=== PATIENT | male | born 1945 | race Caucasian/White ===

== ENCOUNTER 2020-06-24 06:22 | Inpatient (IN) | payer OTHER, SELFPAY ==
[~2020-06-24] VITALS: Ht 167.6 cm; Wt 86.2 kg
[2020-06-24] MEDS ORDERED: NACL 0.9% 1,000 ML IV ONE (06:30)
--- NOTE | 2020-06-24 06:30 | NUR ---
PT OFELIA ALS. TAKEN TO BED 8
[2020-06-24 06:35] VITALS: BP 146/95
--- NOTE | 2020-06-24 06:40 | NUR ---
75 YO M BIBA FROM HOME WITH C/C OF SOB X1 HR. EMT STATED PT WAS SATING AT 70 RA, PLACED ON CIPAP ON ROUTE SATING IN MID 80S. PT IS AWAKE AND ALERT. LUNG SOUNDS CLEAR BILAT. DENIED PAIN. PT AFEBRILE. BS 126. INCREASED WORK OF BREATHING OBSERVED. RT AT BEDSIDE SETTING UP BIPAP. NKA HX: LUNG CANCER, HTN RX: DENIES
[2020-06-24 06:44] VITALS: BP 146/95
--- NOTE | 2020-06-24 06:50 | NUR ---
SWABS COLLECTED AND WALKED TO LAB.
--- NOTE | 2020-06-24 07:36 | NUR ---
REPORT GIVEN TO ROSALVA JONES. TRANSFER OF CARE AT THIS TIME.
[2020-06-24 08:19] LABS: BASOPHILS % (AUTO) 0.4 % (0.0-2.0); EOSINOPHILS % (AUTO) 0.4 % (0.0-4.0); LYMPHOCYTES # (AUTO) 2.1 K/uL (2.0-11.5); LYMPHOCYTES % (AUTO) 30.3 % (20.5-51.1); MEAN CORPUSCULAR HEMOGLOBIN 22 pg (27-31); MEAN CORPUSCULAR HGB CONC 31 g/dL (33-37); MEAN CORPUSCULAR VOLUME 69.3 fL (80-94); MONOCYTES # (AUTO) 0.4 K/uL (0.8-1.0); MONOCYTES % (AUTO) 5.8 % (1.7-9.3); NEUTROPHILS # (AUTO) 4.3 K/uL (1.8-7.7); NEUTROPHILS % (AUTO) 63.1 % (42.2-75.2); PLATELET COUNT (AUTO) 135 K/uL (140-450); RED BLOOD CELL COUNT(AUTO) 5.05 MIL/uL (4.20-6.10); RED CELL DISTRIBUTION WIDTH 19.8 % (11.6-13.7); WHITE BLOOD COUNT (AUTO) 6.8 K/uL (4.8-10.8)
[2020-06-24 08:34] LABS: FIBRINOGEN 359 mg/dL (200-400)
[2020-06-24 08:50] LABS: PROTHROMBIN TIME 10.4 secs (10.8-13.4)
--- NOTE | 2020-06-24 08:56 | NUR ---
*LAB CRITICAL RESULT*- called COVID-19 antigen POSITIVE results
[2020-06-24 09:16] LABS: ALBUMIN 3.4 g/dL (3.4-5.0); ANION GAP 22.3 (8-16); ASPARTATE AMINOTRANSFERASE 42 U/L (15-37); CARBON DIOXIDE 20.9 mmol/L (21-32); CHLORIDE 101 mmol/L (98-107); CREATININE 1.5 mg/dL (0.6-1.3); GLUCOSE 192 mg/dL (74-106); POTASSIUM 3.2 mmol/L (3.5-5.1); SODIUM SERUM 141 mmol/L (136-145); TOTAL BILIRUBIN 0.5 mg/dL (0.0-1.0); UREA NITROGEN, BLOOD 19 mg/dL (7-18)
[2020-06-24] MEDS ORDERED: cefTRIAXone 1,000 MG VIAL ONE (09:38)
--- NOTE | 2020-06-24 10:10 | NUR ---
PT STILL ATTEMPTING TO URINATE, ERMD AWARE
[2020-06-24 10:11] LABS: LACTATE DEHYDROGENASE 245 U/L (85-227)
[2020-06-24] MEDS ORDERED: MORPHINE SULFATE 4 MG/ML SYR IVP PRN (10:40)
[2020-06-24] MEDS ORDERED: KCL 20 MEQ/WATER INJ PREMIX 200 ML IV PRN (10:40)
[2020-06-24] MEDS ORDERED: LORazepam 1 MG TAB PO PRN (10:40)
[2020-06-24] MEDS ORDERED: ACETAMINOPHEN 325 MG TAB PO PRN (10:40)
[2020-06-24] MEDS ORDERED: ONDANSETRON 4 MG/2 ML VIAL IVP PRN (10:40)
[2020-06-24] MEDS ORDERED: MAG SULF 2000 MG/WATER PREMIX 50 ML IV PRN (10:40)
[2020-06-24] MEDS ORDERED: POTASSIUM CHLORIDE 10 MEQ TABER PO PRN (10:40)
[2020-06-24] MEDS ORDERED: HYDROcodone/APAP 5/325 MG 1 TAB TAB PO PRN (10:40)
[2020-06-24 10:55] LABS: C-REACTIVE PROTEIN QUANT 11.3 mg/dL (0.0-0.9)
[2020-06-24 11:06] LABS: D-DIMER > 5000 ng/ml (0-400)
[2020-06-24 11:07] LABS: RSV NEGATIVE (NEGATIVE)
[2020-06-24] MEDS: NACL 0.9% 1,000 ML IV SCH (11:23)
[2020-06-24] MEDS ORDERED: AZITHROMYCIN 500 MG INJ VIAL IV ONE (12:14)
[2020-06-24] MEDS: AZITHROMYCIN 500 MG in DEXTROSE 5% 250 ML IV SCH (12:23)
--- NOTE | 2020-06-24 12:30 | NUR ---
PT ALERT AND AWAKE, BREATHING EVEN AND UNLABORED ON BIPAP MACHINE. PT STATES HE IS BREATHING MUCH BETTER WITH MACHINE
[2020-06-24 14:00] VITALS: BP_SYST 141
[2020-06-24 14:24] LABS: APPEARANCE,URINE HAZY (CLEAR); BILIRUBIN,URINE 1+ (NEGATIVE); BLOOD, URINE NEGATIVE (NEGATIVE); COLOR,URINE YELLOW (YELLOW); LEUKOCYTE ESTERASE ,URINE NEGATIVE (NEGATIVE); NITRITE, URINE NEGATIVE (NEGATIVE); UGLUCOSE NEGATIVE (NEGATIVE)
--- NOTE | 2020-06-24 14:42 | NUR ---
PT ALERT AND AWAKE, BREATHING EVEN AND UNLABORED ON BIPAP MACHINE. VS STABLE ON MONITOR
[2020-06-24 18:55] VITALS: BP 118/83
--- NOTE | 2020-06-24 19:26 | NUR ---
REPORT RECEIVED FROM ROBERT BLACKWELL FOR CONTINUITY OF CARE.
--- NOTE | 2020-06-24 21:20 | NUR ---
PT ON BIPAP. O2 SATURATION 100%. WILL CONTINUE TO MONITOR.
--- NOTE | 2020-06-24 23:27 | NUR ---
PT PLACED ON BEDPAN
[2020-06-24 23:50] VITALS: BP 136/96
[2020-06-25] MEDS: NACL 0.9% 1,000 ML IV SCH ×2 (01:27→11:49)
--- NOTE | 2020-06-25 02:56 | NUR ---
RT AT BEDSIDE
[2020-06-25 03:02] VITALS: BP 140/78
--- NOTE | 2020-06-25 04:40 | NUR ---
PT ON BIPAP. O2 SATURATION 100%. WILL CONTINUE TO MONITOR.
--- NOTE | 2020-06-25 06:25 | NUR ---
PT ON BIPAP. O2 SATURATION 100%. WILL CONTINUE TO MONITOR.
--- NOTE | 2020-06-25 07:09 | NUR ---
REPORT GIVEN TO DANIEL BLACKWELL FOR CONTINUITY OF CARE
--- NOTE | 2020-06-25 07:10 | NUR ---
RECEIVED REPORT FROM BLAZE BLACKWELL. PT ON BIPAP. O2 SATURATION 100%. WILL CONTINUE TO MONITOR.
--- NOTE | 2020-06-25 08:16 | NUR ---
PATIENT HAS BEEN SCREENED AND CATEGORIZED MODERATE NUTRITION RISK. PATIENT WILL BE SEEN WITHIN 3-5 DAYS OF ADMISSION. 06/27/20 06/29/[address]
--- NOTE | 2020-06-25 08:40 | NUR ---
CALL FROM CHRISTAL/SPLICER APPRENTICE TO REMOVE BIPAP TO MASK FROM PATIENT FOR AM BREAKFAST TRAY NO SOB NOTED METAL RIVETING MACHINE OPERATOR INSTRUCTED RN TO PLACE PATIENT ON SUPPLEMENTAL OXYGEN AT 6 LPM VIA NC
[2020-06-25] MEDS ORDERED: ENOXAPARIN 40 MG/0.4 ML SYR SUBQ SCH (09:00)
[2020-06-25] MEDS ORDERED: cefTRIAXone 1,000 MG VIAL ONE (09:55)
[2020-06-25] MEDS: DEXAMETHASONE 4 MG/ML VIAL IVP SCH (10:01)
[2020-06-25] MEDS: DOCUSATE SODIUM 100 MG GELCAP PO SCH (10:02)
[2020-06-25 10:15] LABS: BASOPHILS % (AUTO) 0.2 % (0.0-2.0); EOSINOPHILS % (AUTO) 0.9 % (0.0-4.0); HEMATOCRIT 30.9 % (36-52); HEMOGLOBIN 9.9 g/dL (12.0-18.0); LYMPHOCYTES # (AUTO) 0.7 K/uL (2.0-11.5); LYMPHOCYTES % (AUTO) 19.4 % (20.5-51.1); MEAN CORPUSCULAR HEMOGLOBIN 22 pg (27-31); MEAN CORPUSCULAR HGB CONC 32 g/dL (33-37); MONOCYTES # (AUTO) 0.4 K/uL (0.8-1.0); MONOCYTES % (AUTO) 12.5 % (1.7-9.3); NEUTROPHILS # (AUTO) 2.3 K/uL (1.8-7.7); PLATELET COUNT (AUTO) 155 K/uL (140-450); RED BLOOD CELL COUNT(AUTO) 4.55 MIL/uL (4.20-6.10); RED CELL DISTRIBUTION WIDTH 20.2 % (11.6-13.7); WHITE BLOOD COUNT (AUTO) 3.4 K/uL (4.8-10.8)
--- NOTE | 2020-06-25 11:00 | NUR ---
PT ON O2 CANULAR 3LPM O2 SATURATION 96%. WILL CONTINUE TO MONITOR.
[2020-06-25] MEDS ORDERED: AZITHROMYCIN 500 MG INJ VIAL IV ONE (11:23)
[2020-06-25] MEDS: AZITHROMYCIN 500 MG in DEXTROSE 5% 250 ML IV SCH (11:48)
--- NOTE | 2020-06-25 11:58 | NUR ---
LOC AWAKE AND ALERT VERBALLY RESPONSIVE NO INDICATIONS OF RESPIRATORY DISTRESS NOTED PATIENT STATED "I'M THROWING UP" BIPAP IS AN ADVERSE REACTION TO BIPAP USAGE SATURATION 98% ON SUPPLEMENTAL OXYGEN AT 4 LPM VIA NC TITRATED FIO2 TO 3LPM LAZ/RN AT BEDSIDE AND AWARE
--- NOTE | 2020-06-25 12:08 | NUR ---
PT ON O2 CANULAR 3LPM O2 SATURATION 98%. WILL CONTINUE TO MONITOR.
[2020-06-25] MEDS ORDERED: LOVENOX 1MG/KG Q12H SUBQ SCH (12:10)
[2020-06-25 19:06] LABS: ALBUMIN 2.9 g/dL (3.4-5.0); ASPARTATE AMINOTRANSFERASE 33 U/L (15-37); CARBON DIOXIDE 20.8 mmol/L (21-32); CHLORIDE 106 mmol/L (98-107); GLUCOSE 121 mg/dL (74-106); MAGNESIUM 2.7 mg/dL (1.8-2.4); POTASSIUM 3.8 mmol/L (3.5-5.1); SODIUM SERUM 144 mmol/L (136-145); TOTAL BILIRUBIN 0.4 mg/dL (0.0-1.0); UREA NITROGEN, BLOOD 24 mg/dL (7-18)
--- NOTE | 2020-06-25 19:17 | NUR ---
Pt report given to ANTONETTE BLACKWELL. Transfer of care at this time.
--- NOTE | 2020-06-25 19:20 | NUR ---
REPORT RECEIVED. CARE ASSUMED
--- NOTE | 2020-06-25 20:00 | NUR ---
ATE 50% OF DIET TRAY
--- NOTE | 2020-06-25 21:30 | NUR ---
ASSISTED WITH BEDPAN. HAD 1 SMALL BM
[2020-06-25] MEDS: ENOXAPARIN 80 MG/0.8 ML SYR SUBQ SCH (22:31)
--- NOTE | 2020-06-26 02:00 | NUR ---
RESTING IN BED WITH EYES CLOSED. RESPIRATIONS ARE REGULAR AND UNLABORED. AWAKENS WITH EASE. VOICES NO COMPLAINTS THEN RETURNS TO RESTING WITH EYES CLOSED.
--- NOTE | 2020-06-26 06:00 | NUR ---
AWAKE, DENIES PAIN OR DISCOMFORT. VOIDS QS PER URINAL
--- NOTE | 2020-06-26 07:10 | NUR ---
RECEIVED REPORT FROM ANTONETTE BLACKWELL. Addendum: 06/26/20 at 1131 by [facility] Patient appears to be resting comfortably in bed. ON O2 CANULA 3L/M. Respirations even and unlabored.
[2020-06-26 10:11] LABS: BASOPHILS % (AUTO) 0.2 % (0.0-2.0); HEMATOCRIT 31.7 % (36-52); LYMPHOCYTES # (AUTO) 0.5 K/uL (2.0-11.5); LYMPHOCYTES % (AUTO) 20.1 % (20.5-51.1); MEAN CORPUSCULAR HEMOGLOBIN 22 pg (27-31); MEAN CORPUSCULAR HGB CONC 32 g/dL (33-37); MONOCYTES # (AUTO) 0.6 K/uL (0.8-1.0); MONOCYTES % (AUTO) 22.1 % (1.7-9.3); NEUTROPHILS # (AUTO) 1.4 K/uL (1.8-7.7); NEUTROPHILS % (AUTO) 57.6 % (42.2-75.2); PLATELET COUNT (AUTO) 205 K/uL (140-450); RED BLOOD CELL COUNT(AUTO) 4.66 MIL/uL (4.20-6.10); RED CELL DISTRIBUTION WIDTH 20.3 % (11.6-13.7); WHITE BLOOD COUNT (AUTO) 2.5 K/uL (4.8-10.8)
[2020-06-26] MEDS: DEXAMETHASONE 4 MG/ML VIAL IVP SCH (10:28)
[2020-06-26] MEDS ORDERED: cefTRIAXone 1,000 MG VIAL ONE (10:30)
[2020-06-26] MEDS: DOCUSATE SODIUM 100 MG GELCAP PO SCH (10:31)
[2020-06-26 10:32] LABS: ALBUMIN 2.9 g/dL (3.4-5.0); ANION GAP 14.1 (8-16); ASPARTATE AMINOTRANSFERASE 28 U/L (15-37); CARBON DIOXIDE 26.3 mmol/L (21-32); CHLORIDE 106 mmol/L (98-107); GLUCOSE 135 mg/dL (74-106); MAGNESIUM 2.8 mg/dL (1.8-2.4); POTASSIUM 3.4 mmol/L (3.5-5.1); SODIUM SERUM 143 mmol/L (136-145); TOTAL BILIRUBIN 0.5 mg/dL (0.0-1.0); UREA NITROGEN, BLOOD 26 mg/dL (7-18)
[2020-06-26] MEDS: ENOXAPARIN 80 MG/0.8 ML SYR SUBQ SCH (10:32)
[2020-06-26] MEDS: NACL 0.9% 1,000 ML IV SCH ×2 (10:48→12:40)
[2020-06-26] MEDS ORDERED: AZITHROMYCIN 500 MG INJ VIAL IV ONE (13:07)
[2020-06-26] MEDS: AZITHROMYCIN 500 MG in DEXTROSE 5% 250 ML IV SCH (13:10)
--- NOTE | 2020-06-26 15:13 | NUR ---
ATE LUNCH 100%. O2 SAT 92% ROOM AIR.
--- NOTE | 2020-06-26 15:52 | NUR ---
DISCHARGE PLANNING: PER DR. GUZMAN, HOLD OFF ON HOME O2 ORDER. WILL MONITOR PATIENT. Addendum: 06/27/20 at 1412 by Waleska Bradford CM DC APRYL: RECEIVED ORDER FOR HOME O2 FAXED TO [facility]. Addendum: 06/27/20 at 1600 by Waleska Bradford CM MARA HAGENNER: RECEIVED A CALL FROM EUNICE SCALES REP [phone] FOR [facility] SHE IS WORKING ON THE ORDER AND WILL HOPEFULLY HAVE IT DISPATCHED TODAY.
--- NOTE | 2020-06-26 18:11 | NUR ---
Patient appears to be resting in bed. O2SAT 92% ROOMAIR. Respirations even and unlabored.
--- NOTE | 2020-06-26 19:30 | NUR ---
RECEIVED REPORT FROM ROSALVA SANCHEZ FOR CONTINUATION OF CARE AT THIS TIME. PT IS ASLEEP AT THIS TIME IN SEMI FOWLERS POSITION. VISIBLE RISE AND FALL OF CHEST NOTED. PT IS CONNECTED TO THE MECHANICAL PRODUCT DESIGN ENGINEER. SAO2@90% ON ROOM AIR. PT IS NOT IN ANY DISTRESS AT THIS TIME. BED IS LOCKED AND IN LOWEST POSITION. FLUIDS ARE RUNNING PER MD ORDERS. SIDE RAILSX1. CALL LIGHT WITHIN REACH WILL CONTINUE TO MONITOR.
--- NOTE | 2020-06-26 21:00 | NUR ---
PT REQUESTED WATER BECAUSE HIS THROAT IS DRY. PROVIDED PT WITH WATER AND SOME KLEENEX. PT IS CONNECTED TO THE MOTOR MECHANIC. PT IS NOT IN ANY DISTRESS AT THIS TIME. BED IS LOCKED AND IN LOWEST POSITION. FLUIDS ARE RUNNING PER MD ORDERS. SIDE RAILSX1. CALL LIGHT WITHIN REACH WILL CONTINUE TO MONITOR.
--- NOTE | 2020-06-26 22:00 | NUR ---
PT IS ASLEEP AT THIS TIME IN SEMI FOWLERS POSITION. VISIBLE RISE AND FALL OF CHEST NOTED. PT IS CONNECTED TO THE REGIONAL SALES MANAGER. SAO2@91% ON ROOM AIR. PT IS NOT IN ANY DISTRESS AT THIS TIME. BED IS LOCKED AND IN LOWEST POSITION. FLUIDS ARE RUNNING PER MD ORDERS. SIDE RAILSX1. CALL LIGHT WITHIN REACH WILL CONTINUE TO MONITOR.
--- NOTE | 2020-06-27 | NUR ---
PT IS ASLEEP AT THIS TIME IN SEMI FOWLERS POSITION. VISIBLE RISE AND FALL OF CHEST NOTED. PT IS CONNECTED TO THE SOC ANALYST. SAO2@91% ON ROOM AIR. PT IS NOT IN ANY DISTRESS AT THIS TIME. BED IS LOCKED AND IN LOWEST POSITION. FLUIDS ARE RUNNING PER MD ORDERS. SIDE RAILSX1. CALL LIGHT WITHIN REACH WILL CONTINUE TO MONITOR.
[2020-06-27] MEDS: APIXABAN 2.5 MG TAB PO SCH ×3 (00:30→21:00)
--- NOTE | 2020-06-27 00:35 | NUR ---
Spoke with Phylicia, the pts daughter-pt consented. Gave her an update on the patient's status.
--- NOTE | 2020-06-27 02:00 | NUR ---
PT IS AWAKE AND COUGHING. PT REQUESTED ANOTHER EMESIS BAG FOR HIS PHLEGM AND NEW URINAL. PT IS IN SEMI FOWLERS POSITION. PT IS CONNECTED TO THE CHRONIC DISEASE EPIDEMIOLOGIST. SAO2@87% ON ROOM AIR. PT IS NOT IN ANY DISTRESS AT THIS TIME, PT REFUSING OXYGEN AT THIS TIME. BED IS LOCKED AND IN LOWEST POSITION. FLUIDS ARE RUNNING PER MD ORDERS. SIDE RAILSX1. CALL LIGHT WITHIN REACH WILL CONTINUE TO MONITOR.
[2020-06-27] MEDS: NACL 0.9% 1,000 ML IV SCH ×2 (02:24→14:20)
--- NOTE | 2020-06-27 04:00 | NUR ---
PT IS RESTING AT THIS TIME IN SEMI FOWLERS POSITION. PT IS CONNECTED TO THE CAR SHUNTER. SAO2@89% ON ROOM AIR. PT IS NOT IN ANY DISTRESS AT THIS TIME AND DOES NOT WANT OXYGEN AT THIS TIME. BED IS LOCKED AND IN LOWEST POSITION. FLUIDS ARE RUNNING PER MD ORDERS. SIDE RAILSX1. CALL LIGHT WITHIN REACH WILL CONTINUE TO MONITOR.
--- NOTE | 2020-06-27 06:00 | NUR ---
PROVIDED PT WITH KLEENEX, EMESIS BAG FOR SPUTUM, AND REDRESSED HIS IV SITE PER PT REQUEST. PT IS CONNECTED TO THE BRANCHER. SAO2@87% ON ROOM AIR. PT IS NOT IN ANY DISTRESS AT THIS TIME AND DOES NOT WANT OXYGEN AT THIS TIME. PT STATES HE WANTS TO GO HOME WITHOUT OXYGEN. BED IS LOCKED AND IN LOWEST POSITION. FLUIDS ARE RUNNING PER MD ORDERS. SIDE RAILSX1. CALL LIGHT WITHIN REACH WILL CONTINUE TO MONITOR.
--- NOTE | 2020-06-27 07:30 | NUR ---
GAVE REPORT TO ROSALVA SINGH FOR TRANSFER OF CARE AT THIS TIME.
--- NOTE | 2020-06-27 07:31 | NUR ---
Report reveived from ROSALVA Ross pr intern for continuity of care
--- NOTE | 2020-06-27 07:47 | NUR ---
Patient pulled IV out right hand, refusing to wear O2. Room air sat 80-83%
--- NOTE | 2020-06-27 07:56 | NUR ---
Patient placed on 6l/min NC and instructed to keep O2 on while hospitalized. Thinks he can go home faster if not on O2. O2 saat with O2 is 95-96%. VVS, HOB elevated
[2020-06-27 08:02] LABS: BASOPHILS % (AUTO) 0.1 % (0.0-2.0); EOSINOPHILS % (AUTO) 0.2 % (0.0-4.0); HEMATOCRIT 31.7 % (36-52); HEMOGLOBIN 10.1 g/dL (12.0-18.0); LYMPHOCYTES # (AUTO) 0.7 K/uL (2.0-11.5); LYMPHOCYTES % (AUTO) 19.5 % (20.5-51.1); MEAN CORPUSCULAR HEMOGLOBIN 22 pg (27-31); MEAN CORPUSCULAR HGB CONC 32 g/dL (33-37); MEAN CORPUSCULAR VOLUME 68.4 fL (80-94); MONOCYTES # (AUTO) 0.8 K/uL (0.8-1.0); MONOCYTES % (AUTO) 22.3 % (1.7-9.3); NEUTROPHILS # (AUTO) 2.1 K/uL (1.8-7.7); NEUTROPHILS % (AUTO) 57.9 % (42.2-75.2); PLATELET COUNT (AUTO) 263 K/uL (140-450); RED BLOOD CELL COUNT(AUTO) 4.63 MIL/uL (4.20-6.10); RED CELL DISTRIBUTION WIDTH 20.2 % (11.6-13.7); WHITE BLOOD COUNT (AUTO) 3.6 K/uL (4.8-10.8)
--- NOTE | 2020-06-27 08:57 | NUR ---
IV restarted left hand #20g, tolerated well, patient refuses to keep O2 oxygen on, 6l/min NC. THROUGHLY explained importance
--- NOTE | 2020-06-27 09:09 | NUR ---
Patient brought cardiac diet for breakfast, HOB elevated, patient ate 75% of breakfast tray, tolerated well
[2020-06-27 09:16] LABS: ANION GAP 14.7 (8-16); CARBON DIOXIDE 26.3 mmol/L (21-32); CHLORIDE 108 mmol/L (98-107); GLUCOSE 111 mg/dL (74-106); MAGNESIUM 2.9 mg/dL (1.8-2.4); SODIUM SERUM 145 mmol/L (136-145); UREA NITROGEN, BLOOD 28 mg/dL (7-18)
[2020-06-27 09:51] LABS: ASPARTATE AMINOTRANSFERASE 29 U/L (15-37); TOTAL BILIRUBIN 0.4 mg/dL (0.0-1.0)
[2020-06-27] MEDS: DEXAMETHASONE 4 MG/ML VIAL IVP SCH (10:15)
[2020-06-27] MEDS: DOCUSATE SODIUM 100 MG GELCAP PO SCH (10:15)
[2020-06-27] MEDS ORDERED: cefTRIAXone 1,000 MG VIAL ONE (10:49)
[2020-06-27] MEDS: AZITHROMYCIN 500 MG in DEXTROSE 5% 250 ML IV SCH (13:05)
--- NOTE | 2020-06-27 13:28 | NUR ---
*FAMILY CONTACT* spoke at length with patient's daughter Phylicia regarding patient's status and care
[2020-06-27] MEDS ORDERED: AZITHROMYCIN 500 MG INJ VIAL IV ONE (14:26)
--- NOTE | 2020-06-27 16:50 | NUR ---
Patient transferred to [facility] for further care. RN reevaluating the patient at bedside.
--- NOTE | 2020-06-27 17:27 | NUR ---
Pt requesting to be d/c, explained AMA if that were his wishes against medical advice. Pt stated he would stay a few more hours.
--- NOTE | 2020-06-27 19:24 | NUR ---
Gave report to ROSALVA Bonilla. Transfered care at this time.
--- NOTE | 2020-06-27 19:30 | NUR ---
RECEIVED REPORT FROM GELY BLACKWELL, CONINUATION OF CARE. RECIVED PATIENT A&O X4. RESPIRATIONS ARE EVEN, O2SAT@ 93% ON 6L NC. PATIENT VSS. PATIENT IV PATENT WITH IVF RUNNING ORDERED. PT BED IS LOCKED AND I NLOWEST POSITION. PATIENT DENIES PAIN AT THIS TIME. URINAL AT BEDSIDE.
--- NOTE | 2020-06-27 23:06 | NUR ---
RECIVED PATIENT A&O X4. RESPIRATIONS ARE EVEN, O2SAT@ 94% ON 6L NC. PATIENT VSS. PATIENT DENIES PAIN AT THIS TIME. URINAL AT BEDSIDE. PT BED IS LOCKED AND IN LOWEST POSITION.
--- NOTE | 2020-06-28 02:14 | NUR ---
Patient appears to be resting comfortably in bed. Vital Signs within normal limits. Respirations even and unlabored.
[2020-06-28] MEDS: NACL 0.9% 1,000 ML IV SCH ×2 (02:34→14:40)
--- NOTE | 2020-06-28 03:10 | NUR ---
Patient will be admitted to care of . Admited to [facility]. Will go to room 107B. Belongings list completed. Report to ESME BLACKWELL.
[2020-06-28 03:35] VITALS: BP 159/81
--- NOTE | 2020-06-28 03:35 | NUR ---
RECEIVED PATIENT FROM ER VIA WHEELCHAIR. AAOX4. RESPIRATIONS LABORED AND TACHYPNEIC UPON EXERTION. O2 SAT 94%. SKIN ASSESSMENT COMPLETED. SKIN WARM, DRY AND INTACT. IV SITE TO RIGHT HAND 20G PATENT/INTACT, INFUSING FLUIDS WELL. NO C/O PAIN. NO S/S ACUTE DISTRESS. ABDOMEN SOFT, NONTENDER, NONDISTENDED. BOWEL SOUNDS ACTIVE X4 QUADRANTS. PATIENT IS CONTINENT OF B/B. PLAN OF CARE DISCUSSED. MRSA SCREEN ALREADY SENT. PATIENT ORIENTED TO ROOM/STAFF AND CALL LIGHT. ISOLATION PRECAUTIONS OBSERVED BY ALL STAFF. SAFETY PRECAUTIONS IN PLACE. CALL LIGHT WITHIN REACH.
--- NOTE | 2020-06-28 05:24 | NUR ---
PATIENT IS RESTING COMFORTABLY IN BED. CONTINUES ON O2 4L VIA NC. O2SAT 94%. NO C/O PAIN. CALL LIGHT WITHIN REACH. ISOLATION PRECAUTIONS OBSERVED BY ALL STAFF. SAFETY PRECAUTIONS IN PLACE.
--- NOTE | 2020-06-28 07:15 | NUR ---
RECEIVED PATIENT FROM NIGHT NURSE. PATIENT IN BED AWAKE AND ALERT. RESP EVEN AND UNLABORED ON 4L NC. NO ACUTE S/S OF DISTRESS. DROPLET PRECAUTION OBSERVED. RH 20G INFUSING NS 80ML/HR. HOB ELEVATED. SAFETY MEASURES IN PLACE. CALL LIGHT WITHIN REACH. WILL CONTINUE TO MONITOR.
[2020-06-28 08:00] VITALS: BP 157/87
[2020-06-28] MEDS: APIXABAN 2.5 MG TAB PO SCH (08:14)
[2020-06-28] MEDS: DOCUSATE SODIUM 100 MG GELCAP PO SCH (08:14)
[2020-06-28] MEDS: DEXAMETHASONE 4 MG/ML VIAL IVP SCH (08:15)
--- NOTE | 2020-06-28 08:25 | NUR ---
PATIENT IN BED AWAKE AND ALERT. RESP EVEN AND UNLABORED ON 4L NC. NO ACUTE S/S DISTRESS. MORNING ROUTINE MEDICATIONS GIVEN. PATIENT TOLERATED WELL. RH 20G INFUSING NS 80 ML/HR. PLAN OF CARE DISCUSSED, PATIENT VERBALIZED UNDERSTANDING. PATIENT ABLE TO MAKE NEEDS KNOWN AND FOLLOW COMMANDS. CALL LIGHT WITHIN REACH. WILL CONTINUE TO MONITOR.
[2020-06-28 09:30] LABS: BASOPHILS % (AUTO) 0.4 % (0.0-2.0); EOSINOPHILS % (AUTO) 0.8 % (0.0-4.0); HEMATOCRIT 31.1 % (36-52); HEMOGLOBIN 9.8 g/dL (12.0-18.0); LYMPHOCYTES # (AUTO) 0.7 K/uL (2.0-11.5); LYMPHOCYTES % (AUTO) 18.8 % (20.5-51.1); MEAN CORPUSCULAR HEMOGLOBIN 22 pg (27-31); MEAN CORPUSCULAR HGB CONC 32 g/dL (33-37); MEAN CORPUSCULAR VOLUME 69.2 fL (80-94); MONOCYTES # (AUTO) 0.6 K/uL (0.8-1.0); MONOCYTES % (AUTO) 16.7 % (1.7-9.3); NEUTROPHILS # (AUTO) 2.4 K/uL (1.8-7.7); NEUTROPHILS % (AUTO) 63.3 % (42.2-75.2); PLATELET COUNT (AUTO) 263 K/uL (140-450); RED CELL DISTRIBUTION WIDTH 20.4 % (11.6-13.7); WHITE BLOOD COUNT (AUTO) 3.8 K/uL (4.8-10.8)
[2020-06-28 09:46] LABS: ALBUMIN 2.9 g/dL (3.4-5.0); ANION GAP 15.1 (8-16); ASPARTATE AMINOTRANSFERASE 32 U/L (15-37); CARBON DIOXIDE 25.6 mmol/L (21-32); CHLORIDE 110 mmol/L (98-107); GLUCOSE 104 mg/dL (74-106); MAGNESIUM 2.7 mg/dL (1.8-2.4); POTASSIUM 3.7 mmol/L (3.5-5.1); SODIUM SERUM 147 mmol/L (136-145); TOTAL BILIRUBIN 0.4 mg/dL (0.0-1.0); UREA NITROGEN, BLOOD 28 mg/dL (7-18)
--- NOTE | 2020-06-28 10:49 | NUR ---
ROCEPHIN GIVEN IVPB. PATIENT IN BED WATCHING TV. NO ACUTE S/S DISTRESS. CALL LIGHT WITHIN REACH. WILL CONTINUE TO MONITOR.
--- NOTE | 2020-06-28 11:49 | NUR ---
MRSA NARES POSITIVE. PROTOCOL PUT IN PLACE PER DR GUZMAN. PATIENT MADE AWARE AND VERBALIZED UNDERSTANDING. NO ACUTE S/S DISTRESS. WILL CONTINUE TO MONITOR.
[2020-06-28] MEDS ORDERED: MUPIROCIN CA NASAL 2% 1GM TUBE NS SCH ×2 (11:50→13:00)
[2020-06-28] MEDS ORDERED: CHLORHEXADINE GLUC 2% CLOTH TP SCH ×2 (11:50→13:00)
[2020-06-28 12:00] VITALS: BP 149/92
[2020-06-28] MEDS ORDERED: DEXA6TAB1 PO (12:11)
[2020-06-28] MEDS ORDERED: APIX2.5 PO (12:11)
[2020-06-28] MEDS: AZITHROMYCIN 500 MG in DEXTROSE 5% 250 ML IV SCH (12:50)
--- NOTE | 2020-06-28 13:25 | NUR ---
PATIENT IN BED SLEEPING, RESP EVEN AND UNLABORED ON 4L NC. NO ACUTE S/S DISTRESS. CALL LIGHT WITHIN REACH. WILL CONTINUE TO MONITOR.
--- NOTE | 2020-06-28 13:28 | NUR ---
SOCIAL WORK NOTE: Patient's Orientation Unable To Assess Information Provided By AUBREYRA ARCEES - DAUGHTER Comments SW WAS UNABLE TO MEET PATIENT AT BEDSIDE DUE TO MEDICAL CONDITION. SW COMPLETED ASSESSMENT WITH PATIENT'S DAUGHTER. Signs Cleaner, Realtionship and Phone Number AUBREY DAVIS CHILD [phone] Healthcare Power of Residency Director No Does Patient Have a POLST No Identifying Problems No Social Work Triggers Is A Social Work Consult Needed No Mandate Report Filed No Explanation Of Identifying Problems PATIENT IS A 75-YEAR-OLD MALE ADMITTED FOR ACUTE HYPOXIC RESPIRATORY FAILURE. PATIENT HAS PMHX OF HYPERTENSION. Admitted From Home Pre-Admission Level Of Functioning Status Independent/Ambulatory Prior Resources/Services Used In Last 12 Months No Prior Resources Used Prior DME No Prior DME Used Dialysis Comments N/A Living Situation Lives With Family House Patient Had Caregiver No Home Support No Caregiver Issues Financial Issues No Known Financial Issue Referral To The Financial Counselor Needed No Factors/Needs No D/C Needs Identified Pt/Rep Participated In Discharge Plan Yes Patient/Family Agress With Discharge Plan Yes Discharge Plan Comments TENTATIVE DISCHARGE PLAN IS FOR PATIENT TO RETURN HOME. DC Plan Status Initiated
[2020-06-28 15:08] VITALS: BP 158/94
--- NOTE | 2020-06-28 15:35 | NUR ---
PATIENT IN BED AWAKE AND ALERT. ABLE TO MAKE NEEDS KNOWN. NO ACUTE S/S DISTRESS. RESP EVEN AND UNLABORED ON 2L NC, 95%. CALL LIGHT WITHIN REACH. WILL CONTINUE TO MONITOR.
[2020-06-28] MEDS ORDERED: AMLO5TAB PO (16:55)
[2020-06-28] MEDS ORDERED: amLODIPine 5 MG TAB PO SCH (17:03)
--- NOTE | 2020-06-28 17:07 | NUR ---
NORVASC GIVEN PER DR GUZMAN ORDER FOR HIGH BP 164/103 HR 77. WILL REASSESS BEFORE DISCHARGING PATIENT. PATIENT VERBALIZED UNDERSTANDING.
--- NOTE | 2020-06-28 18:05 | NUR ---
BP 171/[address] GUZMAN WAS CALLED FOR ORDERS. PATIENT IN BED AWAKE AND ALERT. DENIED OF ANY PAIN OR DISTRESS. CALL LIGHT WITHIN REACH. WILL CONTINUE TO MONITOR.
--- NOTE | 2020-06-28 18:29 | NUR ---
PATIENT OK TO DISCHARGE AT THIS TIME PER DR GUZMAN.
--- NOTE | 2020-06-28 19:20 | NUR ---
PATIENT LEFT WITH DAUGHTER AUBREY. PATIENT LEFT WITH ALL PERSONAL BELONGINGS, 1 OXYGEN TANK AND A CONCENTRATOR. DISCHARGE INSTRUCTIONS GIVEN TO DAUGHTER AND PATIENT. VERBALIZED UNDERSTANDING. NO NOTED ACUTE S/S DISTRESS.
== END 2020-06-28 19:25 | disposition home or self-care (01) | DRG 871 ==
LOC: MED 06:22 → MTU 10:49
PROVIDERS: ADMIT Hospitalist; ATTEND Hospitalist
PROC: 5A09357 Assistance with Respiratory Ventilation, Less than 24 Consecutive Hours, Continuous Positive Airway Pressure (ICD-10-PCS; principal; 2020-06-24)
PROC: 5A09357 Assistance with Respiratory Ventilation, Less than 24 Consecutive Hours, Continuous Positive Airway Pressure (ICD-10-PCS; 2020-06-25)
DX: A41.9 Sepsis, unspecified organism (principal); U07.1 COVID-19; J12.89 Other viral pneumonia; J96.01 Acute respiratory failure with hypoxia; C34.90 Malignant neoplasm of unspecified part of unspecified bronchus or lung; D84.9 Immunodeficiency, unspecified; I10 Essential (primary) hypertension; E87.6 Hypokalemia; E80.6 Other disorders of bilirubin metabolism; N28.9 Disorder of kidney and ureter, unspecified; D69.6 Thrombocytopenia, unspecified; Z79.899 Other long term (current) drug therapy
CPT/HCPCS: 36415; 36600; 71045; 80053; 81003; 82550; 82728; 82803; 83605; 83615; 83735; 83880; 84484; 85025; 85379; 85384; 85610; 85730; 86140; 87040; 87081; 87086; 87420; 87804; 96365; 97110; 97116; 97161-GP; 99285; J0456; J0696; J1100; J1650; J7060; U0003